=== PATIENT | female | born 1990 | race Caucasian/White ===

== ENCOUNTER 2018-03-05 21:02 | Emergency (ER) | payer BC ==
[~2018-03-05] VITALS: Ht 152.4 cm; Wt 79.8 kg
[2018-03-05 21:40] VITALS: Ht 152.4 cm; Wt 79.8 kg
[2018-03-05 22:34] VITALS: BP 144/77
== END 2018-03-05 22:34 | disposition home or self-care (01) ==
LOC: ED 21:02
DX: F41.9 Anxiety disorder, unspecified (principal); K62.5 Hemorrhage of anus and rectum; E03.9 Hypothyroidism, unspecified